=== PATIENT | female | born 1975 | race Caucasian/White ===

== ENCOUNTER → 2016-10-01 | Outpatient (CLI) | payer BC ==
--- NOTE | 2016-10-02 12:09 | MM ---
Reason for exam: screening (asymptomatic). Last mammogram was performed 1 year and 5 months ago. Physical Findings: A clinical breast exam by your physician is recommended on an annual basis and results should be correlated with mammographic findings. MG Screening Mammo w CAD Bilateral CC and MLO view(s) were taken. Prior study comparison: April 21, 2015, bilateral MG screening mammo w CAD. The breast tissue is heterogeneously dense. This may lower the sensitivity of mammography. Possible rounded edge abutting the retroglandular fat in the central left breast, CC view. Otherwise, no significant change. ASSESSMENT: Incomplete: need additional imaging evaluation, BI-RAD 0 RECOMMENDATION: Special view mammogram of the left breast. If lesion persists on supplemental views, image directed ultrasound is recommended. [facility] will attempt to contact patient to return for supplemental views and ultrasound if indicated.
== END | disposition home or self-care (01) ==
LOC: RADMAMWWP 13:28
PROVIDERS: ATTEND Family Medicine
DX: Z12.31 Encounter for screening mammogram for malignant neoplasm of breast (principal)

== ENCOUNTER → 2016-10-09 | Outpatient (CLI) | payer BC ==
--- NOTE | 2016-10-09 13:33 | MM ---
Reason for exam: additional evaluation requested from abnormal screening. Last mammogram was performed less than 1 month ago. Physical Findings: Nurse did not find any significant physical abnormalities on exam. MG Work Up Mamm w CAD LT ML, spot compression CC, and spot compression MLO view(s) were taken of the left breast. Prior study comparison: October 01, 2016, bilateral MG screening mammo w CAD. April 21, 2015, bilateral MG screening mammo w CAD. The breast tissue is heterogeneously dense. This may lower the sensitivity of mammography. There is no discrete abnormality. These results were verbally communicated with the patient and result sheet given to the patient on 10/09/16. ASSESSMENT: Benign, BI-RAD 2 RECOMMENDATION: Return to routine screening mammogram schedule for both breasts.
== END | disposition home or self-care (01) ==
LOC: RADMAMWWP 08:58
PROVIDERS: ATTEND Family Medicine
DX: R92.8 Other abnormal and inconclusive findings on diagnostic imaging of breast (principal)

== ENCOUNTER → 2017-12-24 | Outpatient (CLI) | payer BC ==
[2017-12-24 10:35] VITALS: BP 112/72; PULSE 75; TEMP 97.8; BMI 22.1
--- NOTE | 2017-12-24 11:16 | P.HPOB ---
History of Present Illness H&P Date: 12/24/17 Chief Complaint: The patient is here for her routine gynecologic exam and mammogram. This is a 42-year-old with an LMP of 12/10/2017 who is status post tubal ligation. The patient is here to establish with this office. She is status post endometrial ablation in 2009. Her menses are still tube coater than prior to the ablation, but they have gotten heavier over time. Menses are regular every month lasting about 7 days with 2 days of heavier flow. On the heavy days, she has to change her protection up to every one to one and a half hours. She also has some sharp pelvic pains that can go down into the left leg on the heavy days. She is otherwise without complaints. It has been about 2 years since her last pelvic exam. Review of Systems The patient's weight has been stable over the last year. She denies respiratory , cardiac, or G.I. problems. 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 She did have an endometrial ablation for hypermenorrhea in 2009. She had one section followed by vaginal delivery. 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 - Past Family History Father Family Medical History: Hypertension Mother Family Medical History: Hypertension Additional Family Medical History / Comment(s): A grandmother had lung cancer and the grandfather had prostate cancer. Medications and Allergies Home Medications Medication Instructions Recorded Confirmed Type No Known Home Medications [No 12/24/17 12/24/17 History Known Home Medications] Allergies Allergy/AdvReac Type Severity Reaction Status Date / Time amoxicillin Allergy Severe Rash/Hives Unverified 12/24/17 10:26 cephalexin [From Keflex] Allergy Severe Nausea & Unverified 12/24/17 10:28 Vomiting erythromycin base Allergy Rash/Hives Unverified 12/24/17 10:28 codeine AdvReac Severe Nausea & Unverified 12/24/17 10:28 Vomiting Exam - Vital Signs Vital signs: Vital Signs Temp Pulse BP 12/24/17 10:28 97.8 F 75 112/72 Intake and Output 12/23/17 12/24/17 12/24/17 22:59 06:59 14:59 Other: Weight 58.513 kg Height 5'4", BMI 22.1. This is a well-developed well-nourished white female who is alert and oriented times 3 in no acute distress. HEENT: Within normal limits. NECK: Supple without mass or thyromegaly. CHEST AND LUNGS: Clear to auscultation. HEART: Regular rate and rhythm. BREASTS: Are without mass or discharge. AXILLARY EXAM: Negative for adenopathy. BACK: Negative for CVA tenderness. ABDOMEN: Soft, nontender, without palpable masses. PELVIC EXAM: Normal external genitalia. Cervix and vagina appear normal. There is no unusual discharge. There is no evidence of prolapse. The uterus is retroverted, multiparous nongravid size and nontender. There are no palpable adnexal masses or tenderness. RECTAL EXAM: negative for mass or tenderness and is negative for occult blood. EXTREMITIES: Nontender. IMPRESSION: 1. 42-year-old female with status post tubal ligation and endometrial ablation with normal gynecologic exam. 2. Mild hypermenorrhea several years after her endometrial ablation. PLAN: 1. Pap smear was performed. 2. Self breast awareness was discussed. 3. Screening mammogram will be done today. 4. Trial of meclofenamate sodium 100 mg PO TID PRN heavy menstrual flow up to 6 days per cycle. An electronic prescription will be sent to [facility]. 5. If she has worsening of her hypermenorrhea, she was instructed to call and we can consider other options such as hysterectomy. 6. Osteoporosis prevention was discussed. 7. She will return in one year and PRN.
--- NOTE | 2017-12-25 10:38 | MM ---
Reason for exam: screening (asymptomatic). Last mammogram was performed 1 year and 2 months ago. Physical Findings: A clinical breast exam by your physician is recommended on an annual basis and results should be correlated with mammographic findings. MG Screening Mammo w CAD Bilateral CC and MLO view(s) were taken. Prior study comparison: October 09, 2016, left breast MG work up mamm w CAD LT. October 01, 2016, bilateral MG screening mammo w CAD. The breast tissue is heterogeneously dense. This may lower the sensitivity of mammography. There is no discrete abnormality. ASSESSMENT: Negative, BI-RAD 1 RECOMMENDATION: Routine screening mammogram of both breasts in 1 year.
== END | disposition home or self-care (01) ==
LOC: WWCWWP 09:46
PROVIDERS: ATTEND Obstetrics & Gynecology
DX: Z12.31 Encounter for screening mammogram for malignant neoplasm of breast (principal)
CPT/HCPCS: 77067

== ENCOUNTER → 2018-08-07 | Outpatient (CLI) | payer BC ==
[2018-08-08 13:30] LABS: Cow's Milk IgE Class CLASS 0; Egg White IgE <0.35 kU/L (<0.35); Latex IgE Class CLASS 0; Peanut IgE <0.35 kU/L (<0.35); Potato IgE <0.35 kU/L (<0.35); Potato IgE Class CLASS 0; Soybean IgE <0.35 kU/L (<0.35)
[2018-08-10 14:27] LABS: Chocolate IgG 5.2 mcg/mL (< 2.0); Pork IgG 5.3 mcg/mL (< 2.0); Walnut IgG 2.9 mcg/mL (< 2.0)
[2018-08-10 14:28] LABS: Apple IgG 5.2 mcg/mL (< 2.0); Banana IgG 21.7 mcg/mL (< 2.0); Chicken Meat IgG 3.6 mcg/mL (< 2.0); Coffee IgG 6.2 mcg/mL (< 2.0); Crab IgG 2.4 mcg/mL (< 2.0); Egg Yolk IgG 10.3 mcg/mL (< 2.0); Orange IgG 3.3 mcg/mL (< 2.0)
[2018-08-10 14:29] LABS: Celery IgG 3.4 mcg/mL (< 2.0); Corn IgG 5.9 mcg/mL (< 2.0); Cow's Milk IgG 67.8 mcg/mL (< 2.0); Oat IgG 7.4 mcg/mL (< 2.0); Peanut IgG 2.9 mcg/mL (< 2.0); Potato IgG 2.9 mcg/mL (< 2.0); Rice IgG 7.5 mcg/mL (< 2.0); Soybean IgG 2.4 mcg/mL (< 2.0); Tomato IgG 4.2 mcg/mL (< 2.0); Wheat IgG 12.3 mcg/mL (< 2.0)
[2018-08-14 17:17] LABS: Tea IgG 5.2 mcg/mL
== END | disposition home or self-care (01) ==
LOC: LABWHC1 08:40
PROVIDERS: ATTEND Otolaryngology
DX: J30.89 Other allergic rhinitis (principal)
CPT/HCPCS: 36415; 86001; 86003

== ENCOUNTER 2018-12-04 22:29 | Observation (INO) | payer BC ==
[2018-12-04] MEDS ORDERED: KETOROLAC 30 MG/ML 1 ML VIAL IVP STA (22:37)
--- NOTE | 2018-12-04 22:56 | ED ---
Chest Pain HPI - General Stated Complaint: Chest pain Time Seen by Provider: 12/04/18 22:29 Source: patient, EMS, RN notes reviewed Mode of arrival: EMS - History of Present Illness Initial Comments: This a 43-year-old female with a history of reflux but no history of heart or lung disease was a nonsmoker who presents by EMS today with complaints of some sharp squeezing chest pain it radiates to her back she states the pain was 9/10 severity she also has some associated difficulty breathing with it. She states it also did radiate somewhat to the left jaw. EMS was summoned she was given aspirin as well as nitroglycerin the nitroglycerin brought the pain down to a 6 from a 9/10 also dropped her blood pressure however she was given a fluid bolus. She does feel somewhat better but still has this tight feeling she describes a. No cough phlegm production fevers chills sweats nausea no abdominal pain. She does have a family history of a grandparent with the heart attack in the age of 60's. She states nothing makes pain better or worse no movement or positional changes she denies any trauma or any exertional activity that may have precipitated the above. MD Complaint: chest pain, other - Related Data Home Medications Medication Instructions Recorded Confirmed Cbd Oil 1 drop SUBLINGUAL DAILY 12/04/18 12/04/18 Allergies Allergy/AdvReac Type Severity Reaction Status Date / Time amoxicillin Allergy Severe Rash/Hives Verified 12/04/18 22:44 erythromycin base Allergy Rash/Hives Verified 12/04/18 22:44 cephalexin [From Keflex] AdvReac Severe Nausea & Verified 12/04/18 22:44 Vomiting codeine AdvReac Severe Nausea & Verified 12/04/18 22:44 Vomiting Review of Systems ROS Statement: Those systems with pertinent positive or pertinent negative responses have been documented in the HPI. ROS Other: All systems not noted in ROS Statement are negative. 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 She did have an endometrial ablation for hypermenorrhea in 2009. She had one section followed by vaginal delivery. History of Any Multi-Drug Resistant Organisms: None Reported Past Surgical History: Ablation (Endometrial), Section, Tonsillectomy Past Psychological History: No Psychological Hx Reported Smoking Status: Never smoker Past Alcohol Use History: Occasional (6 per week) Past Drug Use History: None Reported - Past Family History Father Family Medical History: Hypertension Mother Family Medical History: Hypertension Additional Family Medical History / Comment(s): A grandmother had lung cancer and the grandfather had prostate cancer. General Exam - General Exam Comments Initial Comments: This is a well-developed well-nourished awake alert oriented 3 female General appearance: alert, anxious Head exam: Present: atraumatic, normocephalic, normal inspection Eye exam: Present: normal appearance, PERRL, EOMI. Absent: scleral icterus, conjunctival injection, periorbital swelling ENT exam: Present: normal exam, mucous membranes moist Neck exam: Present: normal inspection, full ROM, other (No stridor JVD or bruits). Absent: tenderness, meningismus, lymphadenopathy Respiratory exam: Present: normal lung sounds bilaterally. Absent: respiratory distress, wheezes, rales, rhonchi, stridor, chest wall tenderness Cardiovascular Exam: Present: regular rate, normal rhythm, normal heart sounds. Absent: systolic murmur, diastolic murmur, rubs, gallop, clicks GI/Abdominal exam: Present: soft, normal bowel sounds. Absent: distended, tenderness, guarding, rebound, rigid, bruit, pulsatile mass, hernia Extremities exam: Present: normal inspection, full ROM, normal capillary refill. Absent: tenderness, pedal edema, joint swelling, calf tenderness Back exam: Present: normal inspection Neurological exam: Present: alert, oriented X3, CN II-XII intact Psychiatric exam: Present: normal affect, normal mood Skin exam: Present: warm, dry, intact, normal color. Absent: rash Course Vital Signs 12/04/18 22:50 Pulse Rate 81 Respiratory 18 Rate Blood Pressure 131/82 O2 Sat by Pulse 98 Oximetry - Reevaluation(s) Reevaluation #1: 12/05/18 00:17 Reevaluation patient reveals she did get some improvement from the medication was rendered. Chest Pain MDM - MDM I did review the imaging and report no acute findings. Patient is feeling improved the presentation is consistent with new onset angina though other possibilities exist. Lab work thus far is negative the EKG was within normal limits the patient did present with complaints of chest pain and tightness that radiated to her jaw into her back. He admitted case discussed with Dr. Magallanes. Cardiology will be consulted. I did discuss this with patient and her family members were present there in agreement with this route of action. Disposition Clinical Impression: Unstable angina pectoris, Chest pain Disposition: ADMITTED IP TO THIS HOSP Condition: Stable Referrals: Lucila Ridley DO [Primary Care Provider] - 1-2 days
[2018-12-04 23:19] LABS: Basophils % (A) 0 %; Eosinophils # (A) 0.1 k/uL (0-0.7); Eosinophils % (A) 1 %; HCT 39.7 % (34.0-46.0); HGB 13.4 gm/dL (11.4-16.0); Lymphocytes # (A) 1.8 k/uL (1.0-4.8); Lymphocytes % (A) 18 %; MCH 30.1 pg (25.0-35.0); MCHC 33.8 g/dL (31.0-37.0); MCV 89.3 fL (80.0-100.0); Monocytes # (A) 0.6 k/uL (0-1.0); Monocytes % (A) 6 %; Neutrophils # (A) 7.4 k/uL (1.3-7.7); Neutrophils % (A) 73 %; Platelet Count 318 k/uL (150-450); RBC 4.45 m/uL (3.80-5.40); RDW 12.9 % (11.5-15.5); WBC 10.1 k/uL (3.8-10.6)
[2018-12-04 23:27] LABS: ALT 21 U/L (9-52); AST 18 U/L (14-36); Albumin 3.8 g/dL (3.5-5.0); Alkaline Phosphatase 62 U/L (38-126); Amylase 69 U/L (30-110); Anion Gap 9 mmol/L; Blood Urea Nitrogen 10 mg/dL (7-17); Carbon Dioxide 18 mmol/L (22-30); Chloride 111 mmol/L (98-107); Creatine Kinase 42 U/L (30-135); Glucose 105 mg/dL (74-99); Lipase 106 U/L (23-300); Magnesium 1.8 mg/dL (1.6-2.3); Potassium 3.8 mmol/L (3.5-5.1); Sodium 138 mmol/L (137-145); Total Bilirubin 0.5 mg/dL (0.2-1.3); Total Protein 6.7 g/dL (6.3-8.2)
[2018-12-04 23:33] LABS: D-Dimer 0.28 mg/L FEU (<0.60); Partial Thromboplastin Time 24.5 sec (22.0-30.0); Prothrombin Time 10.5 sec (9.0-12.0)
--- NOTE | 2018-12-05 00:02 | XR ---
EXAM: XR Chest, 2 Views CLINICAL HISTORY: ITS.REASON XR Reason: Chest Pain TECHNIQUE: Frontal and lateral views of the chest. COMPARISON: No relevant prior studies available. FINDINGS: Lungs: Unremarkable. No consolidation. Pleural space: Unremarkable. No pneumothorax. Heart: No suspicious enlargement. Mediastinum: Unremarkable. Bones/joints: No acute fracture. IMPRESSION: No acute findings.
[2018-12-05] MEDS ORDERED: HEPARIN SODIUM,PORCINE 5,000 UNIT/ML 1 ML VIAL IV ONE (00:22)
[2018-12-05] MEDS ORDERED: NITROGLYCERIN SL TABS 0.4 MG TAB SUBLINGUAL PRN (00:22)
[2018-12-05] MEDS ORDERED: HEPARIN SOD,PORK IN 0.45% NACL 25,000 UNIT in 0.45% NACL 1 250ML.BAG IV SCH (00:30)
[2018-12-05 01:16] VITALS: RESP 16
[2018-12-05] MEDS ORDERED: HEPARIN SODIUM,PORCINE 5,000 UNIT/ML 1 ML VIAL IV PRN (01:28)
[2018-12-05] MEDS: SODIUM CHLORIDE 0.9% 1,000 ML IV STA ×2 (03:16→03:39)
[2018-12-05] MEDS ORDERED: NITROGLYCERIN OINT 1 INCH/GM PACKET TOPICAL SCH (06:00)
--- NOTE | 2018-12-05 10:06 | P.HPIM ---
History of Present Illness Chief Complaint: Chest pain This very pleasant 43-year-old female with a past medical history significant for GERD comes in with above-mentioned complaints. Patient says that he had just come back from outside when she suddenly started having pain in her left side of the chest radiating to her back and the jaw. It was squeezing in character about 9 x 10 intensity. She was also having some nausea but no vomiting she did not complain of any cough but she said that she was really short of breath. She otherwise did not complain of any abdominal pain, any loss of vision or blurry vision, no Lightheadedness or dizziness, no diarrhea constipation, no tickling numbness of his extremities, no itch or rash. ER course-temperature 97.7 F pulse 64 respirations 16 blood pressure 91/59 satting 96% on room air. EKG was done which showed normal sinus rhythm, chest x-ray shows no acute changes. Labwork was done which showed WAC 10.1 hemoglobin 13.4 platelets 318 d-dimer 0.28 sodium 1:30 potassium 3.8 bun 10 creatinine 0.59 GFR more than 90 LFTs are normal troponin were negative. Patient was admitted to the hospitalist service for further admission and management with cardiology consult Review of Systems All systems: negative Past Medical History Past Medical History: Rheumatoid Arthritis (RA) Additional Past Medical History / Comment(s): she did have an endometrial ablation for hypermenorrhea in 2009. She had one section followed by vaginal delivery. History of Any Multi-Drug Resistant Organisms: None Reported Past Surgical History: Ablation, Section, Tonsillectomy Past Psychological History: No Psychological Hx Reported Smoking Status: Never smoker Past Alcohol Use History: Occasional Past Drug Use History: None Reported - Past Family History Father Family Medical History: Hypertension Mother Family Medical History: Hypertension Additional Family Medical History / Comment(s): A grandmother had lung cancer and the grandfather had prostate cancer. Medications and Allergies Home Medications Medication Instructions Recorded Confirmed Type Cbd Oil 1 drop SUBLINGUAL DAILY 12/04/18 12/05/18 History Allergies Allergy/AdvReac Type Severity Reaction Status Date / Time amoxicillin Allergy Severe Rash/Hives Verified 12/05/18 01:43 erythromycin base Allergy Rash/Hives Verified 12/05/18 01:43 cephalexin [From Keflex] AdvReac Severe Nausea & Verified 12/05/18 01:43 Vomiting codeine AdvReac Severe Nausea & Verified 12/05/18 01:43 Vomiting Physical Exam Vitals: Vital Signs Temp Pulse Pulse Pulse Resp BP BP 12/05/18 07:05 97.7 F 64 16 12/05/18 03:53 98.3 F 74 16 99/63 12/05/18 02:09 16 12/05/18 01:30 98.5 F 62 16 107/66 12/05/18 01:15 71 16 116/70 12/04/18 22:50 81 18 131/82 BP Pulse Ox 12/05/18 07:05 91/59 97 12/05/18 03:53 98 12/05/18 02:09 12/05/18 01:30 96 12/05/18 01:15 96 12/04/18 22:50 98 Intake and Output 12/04/18 12/05/18 12/05/18 22:59 06:59 14:59 Intake Total 438.551 Balance 438.551 Intake: IV 400 Sodium Chloride 0.9% 1, 400 000 ml @ 100 mls/hr IV . Q10H [facility] Rx#:[id number] Intake, IV Titration 38.551 Amount Heparin Sod,Pork in 0.45% 38.551 NaCl 25,000 unit In 0.45 % NaCl 1 250ml.bag @ 12 UNITS/KG/HR 6.967 mls/hr IV .Q24H [facility] Rx#: [id number] Other: Voiding Method Toilet Toilet # Voids 2 Weight 58.06 kg On exam, alert and oriented x3. HEENT: Conjunctivae normal. eyes normal. NECK: No JVD. No thyroid enlargement. No LNs CARDIOVASCULAR: S1, S2 heard RESPIRATION: Breath sounds diminished in the bases. No rhonchi or crackles. No bronchial breathing. ABDOMEN: Soft, nontender . No guarding. no masses palpable. No ascites, No hepatosplenomegaly.Bowel sounds heard. LEGS: No edema. no swelling NERVOUS SYSTEM: Cranial N 2-12 grossly normal. Moves all 4 limbs. No focal deficits. No sensory deficit. No signs of cerebellar dysfucntion. Skin: no ulcer no rash Joints: No active swelling. No inflammation. Lymphatic system. No LN neck axilla or groin. Results CBC & Chem 7: 12/04/18 23:00 12/04/18 23:00 Labs: Abnormal Lab Results - Last 24 Hours (Table) 12/04/18 12/05/18 Range/Units 23:00 06:00 APTT 42.4 H (22.0-30.0) sec Chloride 111 H (98-107) mmol/L Carbon Dioxide 18 L (22-30) mmol/L Glucose 105 H (74-99) mg/dL Thrombosis Risk Factor Assmnt - Choose All That Apply Any of the Below Risk Factors Present?: Yes Each Factor Represents 1 point: Age 41-60 years Other Risk Factors: No Other congenital or acquired thrombophilia - If yes, enter type in comment: No Thrombosis Risk Factor Assessment Total Risk Factor Score: 1 Thrombosis Risk Factor Assessment Level: Low Risk Assessment and Plan Assessment: - Chest pain need to rule out the cause - GERD Plan - Patient is admitted to observation - Cardiology consulted. Order for stress test - Patient's d-dimer was negative so this no probably D of PE. Patient chest pain is gone and she is breathing better. - He was stress test is negative patient can probably be discharged - We'll continue DVT and prophylaxis till that time - Patient is full code
--- NOTE | 2018-12-05 10:55 | P.CRDCN ---
History of Present Illness History of present illness: This is a pleasant 43-year-old female with no significant past medical history who presents to the hospital with an episode of chest discomfort. She states off-and-on for the previous few days she has noticed a burning sensation in the midsternal region that she thought was acid reflux. She has been taking Tums and it was helping mildly. However yesterday afternoon while she was getting ready to have dinner she felt a tight sensation in the left precordial region systolic someone was sitting on her chest and it radiated to the left shoulder, left upper back and into her jaw. She also felt acutely short of breath. This lasted for approximately 20-30 minutes and she called EMS. She took an aspirin at home and her symptoms did mildly start to subside. By the time she arrived to the emergency department her symptoms had completely resolved. She has had no further chest discomfort since arriving at the hospital. She denies associated palpitations, nausea, vomiting or diaphoresis. EKG reveals sinus mechanism with no acute ST or T wave abnormalities noted. Chest x-ray is negative for acute cardiopulmonary process. Laboratory data reviewed, WBC 10.1, hemoglobin 13.4, platelets 318, d-dimer 0.28, sodium 138, potassium 3.8, creatinine 0.59, magnesium 1.8, cardiac enzymes negative 2. She takes no daily cardiac medications. At the time of my exam: CONSTITUTIONAL: Denies fever. Denies chills. EYES: Denies blurred vision. Denies vision changes. Denies eye pain. EARS, NOSE, MOUTH & THROAT: Denies headache. Denies sore throat. Denies ear pain. CARDIOVASCULAR: Denies chest pain. Denies shortness of breath. Denies orthopnea. Denies PND. Denies palpitations. RESPIRATORY: Denies cough. GASTROINTESTINAL: Denies abdominal pain. Denies diarrhea. Denies constipation. Denies nausea. Denies vomiting. MUSCULOSKELETAL: Denies myalgias. INTEGUMENTARY: Denies pruitis. Denies rash. NEUROLOGIC: Denies numbness. Denies tingling. Denies weakness. PSYCHIATRIC: Denies anxiety. Denies depression. ENDOCRINE: Denies fatigue. Denies weight change. Denies polydipsia. Denies polyurina. GENITOURINARY: Denies burning, hematuria or urgency with micturation. HEMATOLOGIC: Denies history of anemia. Denies bleeding. Blood pressure 91/59 heart rate 64 afebrile maintaining oxygen saturation on room air GENERAL: This is a 43-year-old female in no apparent distress at the time of my examination. HEENT: Head is atraumatic, normocephalic. Pupils are equal, round. Sclerae anicteric. Conjunctivae are clear. Mucous membranes of the mouth are moist. Neck is supple. There is no jugular venous distention. No carotid bruit is heard. LUNGS: Clear to auscultation no wheezes, rales or rhonchi. No chest wall tenderness is noted on palpation or with deep breathing. HEART: Regular rate and rhythm without murmurs, rubs or gallops. S1 and S2 heard. ABDOMEN: Soft, nontender. Bowel sounds are heard. No organomegaly noted. EXTREMITIES: No evidence of peripheral edema and no calf tenderness noted. VASCULAR: Radial and dorsalis pedis pulses palpated, no evidence of clubbing. NEUROLOGIC: Patient is awake, alert and oriented x3. ASSESSMENT Chest pain, atypical for angina. An acute coronary event has been ruled out PLAN An acute coronary event has been ruled out. Discontinue heparin infusion. Obtain 2-D echocardiogram and Doppler study to assess cardiac structure and function. Perform stress echocardiogram to assess for stress-induced cardiac ischemia. If stress test and echocardiogram are normal she may be discharged home. Follow-up with her primary care physician upon discharge. Thank you kindly for this consultation. Nurse Practitioner note has been reviewed, I agree with a documented findings and plan of care. Patient was seen and examined. Past Medical History Past Medical History: Rheumatoid Arthritis (RA) Additional Past Medical History / Comment(s): she did have an endometrial a blation for hypermenorrhea in 2009. She had one section followed by vaginal delivery. History of Any Multi-Drug Resistant Organisms: None Reported Past Surgical History: Ablation, Section, Tonsillectomy Past Psychological History: No Psychological Hx Reported Smoking Status: Never smoker Past Alcohol Use History: Occasional Past Drug Use History: None Reported - Past Family History Father Family Medical History: Hypertension Mother Family Medical History: Hypertension Additional Family Medical History / Comment(s): A grandmother had lung cancer and the grandfather had prostate cancer. Medications and Allergies Home Medications Medication Instructions Recorded Confirmed Type Cbd Oil 1 drop SUBLINGUAL DAILY 12/04/18 12/05/18 History Allergies Allergy/AdvReac Type Severity Reaction Status Date / Time amoxicillin Allergy Severe Rash/Hives Verified 12/05/18 01:43 erythromycin base Allergy Rash/Hives Verified 12/05/18 01:43 cephalexin [From Keflex] AdvReac Severe Nausea & Verified 12/05/18 01:43 Vomiting codeine AdvReac Severe Nausea & Verified 12/05/18 01:43 Vomiting Physical Exam Vitals: Vital Signs Temp Pulse Pulse Pulse Resp BP BP 12/05/18 07:05 97.7 F 64 16 12/05/18 03:53 98.3 F 74 16 99/63 12/05/18 02:09 16 12/05/18 01:30 98.5 F 62 16 107/66 12/05/18 01:15 71 16 116/70 12/04/18 22:50 81 18 131/82 BP Pulse Ox 12/05/18 07:05 91/59 97 12/05/18 03:53 98 12/05/18 02:09 12/05/18 01:30 96 12/05/18 01:15 96 12/04/18 22:50 98 Intake and Output 12/04/18 12/05/18 12/05/18 22:59 06:59 14:59 Intake Total 438.551 Balance 438.551 Intake: IV 400 Sodium Chloride 0.9% 1, 400 000 ml @ 100 mls/hr IV . Q10H [facility] Rx#:[id number] Intake, IV Titration 38.551 Amount Heparin Sod,Pork in 0.45% 38.551 NaCl 25,000 unit In 0.45 % NaCl 1 250ml.bag @ 12 UNITS/KG/HR 6.967 mls/hr IV .Q24H [facility] Rx#: [id number] Other: Voiding Method Toilet # Voids 2 Weight 58.06 kg Results 12/04/18 23:00 12/04/18 23:00 Cardiac Enzymes 12/04/18 12/04/18 12/05/18 Range/Units 23:00 23:00 06:00 AST 18 (14-36) U/L Troponin I <0.012 <0.012 (0.000-0.034) ng/mL Coagulation 12/04/18 12/05/18 Range/Units 23:00 06:00 PT 10.5 (9.0-12.0) sec APTT 24.5 42.4 H (22.0-30.0) sec CBC 12/04/18 Range/Units 23:00 WBC 10.1 (3.8-10.6) k/uL RBC 4.45 (3.80-5.40) m/uL Hgb 13.4 (11.4-16.0) gm/dL Hct 39.7 (34.0-46.0) % Plt Count 318 (150-450) k/uL Comprehensive Metabolic Panel 12/04/18 Range/Units 23:00 Sodium 138 (137-145) mmol/L Potassium 3.8 (3.5-5.1) mmol/L Chloride 111 H (98-107) mmol/L Carbon Dioxide 18 L (22-30) mmol/L BUN 10 (7-17) mg/dL Creatinine 0.59 (0.52-1.04) mg/dL Glucose 105 H (74-99) mg/dL Calcium 9.0 (8.4-10.2) mg/dL AST 18 (14-36) U/L ALT 21 (9-52) U/L Alkaline Phosphatase 62 (38-126) U/L Total Protein 6.7 (6.3-8.2) g/dL Albumin 3.8 (3.5-5.0) g/dL Current Medications Generic Name Dose Route Start Last Admin Trade Name Freq PRN Reason Stop Dose Admin Aspirin 325 mg 12/06/18 09:00 Aspirin PO DAILY [facility] Heparin Sodium (Porcine) 0 unit 12/05/18 01:28 12/05/18 06:39 Heparin IV 1,450 unit PER PROTOCOL PRN Administration Low PTT Protocol Sodium Chloride 1,000 mls @ 100 mls/hr 12/04/18 22:37 12/05/18 03:39 Saline 0.9% IV 12/05/18 08:36 100 mls/hr .Q10H [facility] Administration Heparin Sodium/Sodium Chloride 250 mls @ 6.967 mls/hr 12/05/18 00:30 12/05/18 06:39 25,000 unit/ Sodium Chloride IV 14 units/kg/hr .Q24H [facility] 8.128 mls/hr Titration Protocol 12 UNITS/KG/HR Nitroglycerin 0.5 inch 12/05/18 06:00 12/05/18 03:55 Nitro-Bid Oint TOPICAL Not Given Q6HR [facility] Nitroglycerin 0.4 mg 12/05/18 00:22 Nitrostat SUBLINGUAL Q5M PRN Chest Pain Intake and Output 12/04/18 12/05/18 12/05/18 22:59 06:59 14:59 Intake Total 438.551 Balance 438.551 Intake: IV 400 Sodium Chloride 0.9% 1, 400 000 ml @ 100 mls/hr IV . Q10H [facility] Rx#:[id number] Intake, IV Titration 38.551 Amount Heparin Sod,Pork in 0.45% 38.551 NaCl 25,000 unit In 0.45 % NaCl 1 250ml.bag @ 12 UNITS/KG/HR 6.967 mls/hr IV .Q24H [facility] Rx#: [id number] Other: Voiding Method Toilet # Voids 2 Weight 58.06 kg 12/04/18 23:00 12/04/18 23:00
[2018-12-05 11:54] VITALS: BP 101/65; PULSE 82; TEMP 97.9
--- NOTE | 2018-12-05 12:01 | P.STRESS ---
- Stress Test Note Stress Test Results/Findings: Exam Performed: stress echo exercise Exam Date: 12/05/18 Reason for Exam: CHEST PAIN / SOB Height: 5 ft 4 in Weight: 58.06 kg Protocol: AGUSTIN Stage: 4 Duration of Exercise: 9:30 Resting Heart Rate: 72 Resting Blood Pressure: 96/58 Maximum Achieved Heart Rate: 160 Maximum Achieved Blood Pressure: 187/85 85% PMHR: 149 100% PMHR: 175 METS: 11.1 Technologist Comment: Stress Test Results/Findings: This is a 43-year-old female who was admitted to the hospital with chest pain and shortness of breath. Stress data: Baseline EKG showed sinus rhythm with normal TN interval and QRS duration. Blood pressure at rest is 96/58, pulse rate of 72. Patient walked on the Agustin protocol for 9 minutes and 30 seconds achieving a maximum heart rate of 160 with a blood pressure 187/85. EKGs taken during and after the exercise did not reveal any changes of ischemia. Echo data: Baseline echo images showed normal wall motion and thickening. Exercise echo images showed augmentation of wall motion and thickening in all the segments. Final impression: #1. Negative stress test #2. Negative stress echo
--- NOTE | 2018-12-05 12:41 | ECHOF ---
Referral Reason:cp MEASUREMENTS -------- HEIGHT: 162.6 cm WEIGHT: 58.1 kg BP: RVIDd: 2.0 cm (< 3.3) IVSd: 0.9 cm (0.6 - 1.1) LVIDd: 4.2 cm (3.9 - 5.3) LVPWd: 1.0 cm (0.6 - 1.1) IVSs: 1.3 cm LVIDs: 2.8 cm LVPWs: 1.4 cm LAESV Index (A-L): 19.73 ml/m Ao Diam: 2.6 cm (2.0 - 3.7) AV Cusp: 1.4 cm (1.5 - 2.6) LA Diam: 2.5 cm (2.7 - 3.8) MV EXCURSION: 14.273 mm (> 18.000) MV EF SLOPE: 143 mm/s (70 - 150) EPSS: 0.4 cm MV E Nabil: 0.82 m/s MV DecT: 242 ms MV A Nabil: 0.70 m/s MV E/A Ratio: 1.17 RAP: 5.00 mmHg RVSP: 12.32 mmHg FINDINGS -------- Sinus rhythm. This was a technically good study. The left ventricular size is normal. Left ventricular wall thickness is normal. Overall left vent ricular systolic function is normal with, an EF between 55 - 60 %. The right ventricle is normal in size. Normal LA size by volume 22+/-6 ml/m2. The right atrial size is normal. Interatrial and interventricular septum intact. The aortic valve is trileaflet and appears structurally normal. Mild mitral regurgitation is present , predominately a posteriorly directed jet. Trace tricuspid regurgitation present. The right ventricular systolic pressure, as measured by Dopp ler, is 12.32mmHg. There is no pulmonic regurgitation present. The aortic root size is normal. Normal inferior vena cava with normal inspiratory collapse consistent with estimated right atrial pre ssure of 5 mmHg. There is no pericardial effusion. CONCLUSIONS -------- 1. Sinus rhythm. 2. This was a technically good study. 3. The left ventricular size is normal. 4. Left ventricular wall thickness is normal. 5. Overall left ventricular systolic function is normal with, an EF between 55 - 60 %. 6. The right ventricle is normal in size. 7. Normal LA size by volume 22+/-6 ml/m2. 8. The right atrial size is normal. 9. Interatrial and interventricular septum intact. 10. The aortic valve is trileaflet and appears structurally normal. 11. Mild mitral regurgitation is present. 12. , predominately a posteriorly directed jet. 13. Trace tricuspid regurgitation present. 14. The right ventricular systolic pressure, as measured by Doppler, is 12.32mmHg. 15. There is no pulmonic regurgitation present. 16. The aortic root size is normal. 17. Normal inferior vena cava with normal inspiratory collapse consistent with estimated right atrial pressure of 5 mmHg. 18. There is no pericardial effusion. HANDLE MAKER: Funmi Xie RDCS
[2018-12-06] MEDS ORDERED: ASPIRIN 325 MG TAB PO SCH (09:00)
--- NOTE | 2018-12-08 14:49 | ECHOS ---
Stress Test Results/Findings: Exam Performed: stress echo exercise Exam Date: 12/05/18 Reason for Exam: CHEST PAIN / SOB Height: 5 ft 4 in Weight: 58.06 kg Protocol: AGUSTIN Stage: 4 Duration of Exercise: 9:30 Resting Heart Rate: 72 Resting Blood Pressure: 96/58 Maximum Achieved Heart Rate: 160 Maximum Achieved Blood Pressure: 187/85 85% PMHR: 149 100% PMHR: 175 METS: 11.1 Technologist Comment: Stress Test Results/Findings: This is a 43-year-old female who was admitted to the hospital with chest pain and shortness of breath. Stress data: Baseline EKG showed sinus rhythm with normal KS interval and QRS duration. Blood pressure at rest is 96/58, pulse rate of 72. Patient walked on the Agustin protocol for 9 minutes and 30 seconds achieving a maximum heart rate of 160 with a blood pressure 187/85. EKGs taken during and after the exercise did not reveal any changes of ischemia. Echo data: Baseline echo images showed normal wall motion and thickening. Exercise echo images showed augmentation of wall motion and thickening in all the segments. Final impression: #1. Negative stress test #2. Negative stress echo MTDD
== END 2018-12-05 16:40 | disposition home or self-care (01) ==
LOC: EC 22:29 → 1SOBS 12-05 00:34
PROVIDERS: ADMIT Internal Medicine; ATTEND Internal Medicine
DX: R07.89 Other chest pain (principal); K21.9 Gastro-esophageal reflux disease without esophagitis; M06.9 Rheumatoid arthritis, unspecified; Z79.899 Other long term (current) drug therapy; Z88.0 Allergy status to penicillin; Z88.1 Allergy status to other antibiotic agents; Z88.5 Allergy status to narcotic agent; Z87.42 Personal history of other diseases of the female genital tract; Z80.1 Family history of malignant neoplasm of trachea, bronchus and lung; Z80.42 Family history of malignant neoplasm of prostate; Z82.49 Family history of ischemic heart disease and other diseases of the circulatory system
CPT/HCPCS: 96366; 96376 ×2; 96365; 96375; 99285; 36415; 93306; 93351; 85379; 83880; 80053; 82150; 82550; 83690; 83735; 84484 ×2; 85025; 85610; 85730 ×2; 71046; G0378; J1644 ×2; J1885

== ENCOUNTER → 2019-01-20 | Outpatient (CLI) | payer BC ==
[2019-01-20 08:06] VITALS: BP 125/83; PULSE 69; RESP 16; TEMP 98.1; BMI 23.0
--- NOTE | 2019-01-20 08:41 | P.HPOB ---
History of Present Illness H&P Date: 01/20/19 Chief Complaint: The patient is here for her routine gynecologic exam and ma mmogram. This is a 43-year-old with an LMP of 01/05/2019. The patient was status post tubal ligation. She does not think she took the meclofenamate sodium for her heavier menstrual flow days. She states her menstrual periods have been okay. They are typically lasting about 7 days with 2 days of heavier flow. They are still better than before the her endometrial ablation. She states they are less painful now. She is not interested in any type of treatment at this time. She is without complaints. Review of Systems The patient has gained 5 pounds over the last year. She denies respiratory, cardiac, or G.I. problems. 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 She did have an endometrial ablation for hypermenorrhea in 2009. She had one section followed by vaginal delivery. History of Any Multi-Drug Resistant Organisms: None Reported Past Surgical History: Section, Tonsillectomy, Uterine Ablation Additional Past Surgical History / Comment(s): Endometrial ablation 2009. 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 - Past Family History Father Family Medical History: Hypertension Mother Family Medical History: Hypertension Additional Family Medical History / Comment(s): A grandmother had lung cancer and the grandfather had prostate cancer. Medications and Allergies Home Medications Medication Instructions Recorded Confirmed Type No Known Home Medications 01/20/19 01/20/19 History Allergies Allergy/AdvReac Type Severity Reaction Status Date / Time amoxicillin Allergy Severe Rash/Hives Verified 01/20/19 08:06 erythromycin base Allergy Rash/Hives Verified 01/20/19 08:06 cephalexin [From Keflex] AdvReac Severe Nausea & Verified 01/20/19 08:06 Vomiting codeine AdvReac Severe Nausea & Verified 01/20/19 08:06 Vomiting Exam Vital Signs Temp Pulse Resp BP Pulse Ox 01/20/19 08:04 98.1 F 69 16 125/83 97 Intake and Output 01/19/19 01/20/19 01/20/19 22:59 06:59 14:59 Other: Weight 60.781 kg Height 5'4", weight 134 pounds, BMI 23.0. This is a well-developed well-nourished white female who is alert and oriented times 3 in no acute distress. HEENT: Within normal limits. NECK: Supple without mass or thyromegaly. CHEST AND LUNGS: Clear to auscultation. HEART: Regular rate and rhythm. BREASTS: Are without mass or discharge. There is bilateral central nipple inversion which the patient states has been this way for many years. AXILLARY EXAM: Negative for adenopathy. BACK: Negative for CVA tenderness. ABDOMEN: Soft, nontender, without palpable masses. PELVIC EXAM: Normal external genitalia. Cervix and vagina appear normal. There is no unusual discharge. There is no evidence of prolapse. The uterus is retroverted, nongravid size and nontender. There are no palpable adnexal masses or tenderness. RECTAL EXAM: negative for mass or tenderness and is negative for occult blood. EXTREMITIES: Nontender. IMPRESSION: 1. 43-year-old female with normal gynecologic exam who is status post tubal ligation. 2. Mild hypermenorrhea post endometrial ablation which is not a big problem. Declining any treatment at this time. PLAN: 1. Pap smear was deferred since she had a normal one on 12/14/2017. 2. Self breast awareness was discussed with the patient. 3. Screening mammogram will be done today. 4. Osteoporosis prevention was discussed. I have stressed the importance of adequate calcium, vitamin D and regular exercise. Recommended amounts of calcium and vitamin D were also discussed. 5. She will keep a menstrual calendar and call if she is having any menstrual problems. 6. We have discussed possible HPV vaccination for her 2 daughters. 7. She was advised to return in one year for her annual well woman exam.
--- NOTE | 2019-01-21 10:45 | MM ---
Reason for exam: screening (asymptomatic). Last mammogram was performed 1 year and 1 month ago. Physical Findings: A clinical breast exam by your physician is recommended on an annual basis and results should be correlated with mammographic findings. MG 3D Screening Mammo W/Cad Bilateral CC and MLO view(s) were taken. Prior study comparison: December 24, 2017, bilateral MG screening mammo w CAD. October 09, 2016, left breast MG work up mamm w CAD LT. The breast tissue is extremely dense which could obscure a lesion on mammography. There are multiple round oval circumscribed bilateral masses, however enlarged from priors. Ultrasound to confirm cystic nature. These are seen in all 4 quadrants bilaterally and measure up to 3.1cm on the left and 2.0cm on the right. ASSESSMENT: Incomplete: need additional imaging evaluation, BI-RAD 0 RECOMMENDATION: Ultrasound of both breasts. [facility] will attempt to contact patient to return for ultrasound.
== END ==
LOC: WWCWWP 07:54
PROVIDERS: ATTEND Obstetrics & Gynecology
DX: Z12.31 Encounter for screening mammogram for malignant neoplasm of breast (principal)
CPT/HCPCS: 77063; 77067

== ENCOUNTER → 2019-01-23 | Outpatient (CLI) | payer BC ==
--- NOTE | 2019-01-26 08:45 | USB ---
Reason for exam: additional evaluation requested from abnormal screening. Physical Findings: Nurse Summary: all soft, movable (nurse ts). US Breast Workup MITZY Right complete breast ultrasound includes all four quadrants, the retroareolar region and axilla. Finding demonstrates a 10 x 7 x 11mm oval, cystic, benign lesion at 1 o'clock, a 6 x 4 x 4mm oval, hypoechoic lesion at 6 o'clock post enhancement, likely complicated cyst, 6 month follow up recommended, a 10 x 6 x 9mm oval, cystic, benign lesion at 7 o'clock, a 20 x 9 x 19mm oval, cystic, benign lesion at 10 o'clock, a 12 x 11 x 13mm lobular, cystic, benign lesion at 11 o'clock and a 10mm lymph node at the axillary tail. Left complete breast ultrasound includes all four quadrants, the retroareolar region and axilla. Finding demonstrates a 12 x 9 x 12mm oval, cystic lesion at 12 o'clock, a 11 x 7 x 10mm oval, cystic lesion at 6 o'clock, a 33 x 16 x 26mm oval, cystic lesion at 9 o'clock, a 6 x 4 x 6mm hypoechoic lesion at 10 o'clock and a 27 x 15 x 24mm lobular, cystic lesion at 10 o'clock. These results were verbally communicated with the patient and result sheet given to the patient on 01/23/19. ASSESSMENT: Probably benign, BI-RAD 3 RECOMMENDATION: Ultrasound of the left breast in 6 months. (only upper inner quadrant on left breast 6 month follow up)
== END | disposition home or self-care (01) ==
LOC: RADUSWWP 13:37
PROVIDERS: ATTEND Obstetrics & Gynecology
DX: R92.8 Other abnormal and inconclusive findings on diagnostic imaging of breast (principal)

== ENCOUNTER → 2019-07-30 | Outpatient (CLI) | payer BC ==
--- NOTE | 2019-07-30 11:08 | USB ---
Reason for exam: follow-up at short interval from prior study. Physical Findings: Nurse did not find any significant physical abnormalities on exam. US Breast Limited LT Technologist: Bettina Melgoza Left limited breast ultrasound including focal area of concern, retroareolar and axilla demonstrates a 3.3 x 3.1 x 1.4cm cystic lesion at 10 o'clock, a 3.0 x 2.7 x 1.5cm cystic lesion at 11 o'clock, a 0.5 x 0.5 x 0.4cm complicated, cystic lesion at 11 o'clock with few internal echoes prior 0.6 x 0.4 x 0.6cm on 01/23/19 and ducts at posterior nipple. These results were verbally communicated with the patient and result sheet given to the patient on 07/30/19. ASSESSMENT: Benign, BI-RAD 2 RECOMMENDATION: Return to routine screening mammogram schedule for both breasts. Back on schedule for January 2020.
== END | disposition home or self-care (01) ==
LOC: RADUSWWP 08:48
PROVIDERS: ATTEND Obstetrics & Gynecology
DX: R92.8 Other abnormal and inconclusive findings on diagnostic imaging of breast (principal)

== ENCOUNTER → 2020-06-06 | Outpatient (CLI) | payer BC ==
[2020-06-06 17:11] LABS: Basophils # (A) 0.1 k/uL (0-0.2); Basophils % (A) 1 %; Eosinophils # (A) 0.2 k/uL (0-0.7); Eosinophils % (A) 2 %; HCT 43.8 % (34.0-46.0); HGB 14.5 gm/dL (11.4-16.0); Lymphocytes # (A) 2.1 k/uL (1.0-4.8); Lymphocytes % (A) 26 %; MCH 31.3 pg (25.0-35.0); MCHC 33.2 g/dL (31.0-37.0); MCV 94.2 fL (80.0-100.0); Mean Platelet Volume 7.5; Monocytes # (A) 0.6 k/uL (0-1.0); Monocytes % (A) 8 %; Neutrophils % (A) 61 %; Platelet Count 294 k/uL (150-450); RBC 4.65 m/uL (3.80-5.40); RDW 12.6 % (11.5-15.5); WBC 8.1 k/uL (3.8-10.6)
[2020-06-06 17:21] LABS: African American GFR (CKD) >90 (>60 ml/min/1.73 sqM); Anion Gap 4 mmol/L; Blood Urea Nitrogen 14 mg/dL (7-17); Carbon Dioxide 24 mmol/L (22-30); Chloride 108 mmol/L (98-107); Glucose 97 mg/dL (74-99); Non-African American GFR(CKD) 89 (>60 ml/min/1.73 sqM); Potassium 4.2 mmol/L (3.5-5.1); Sodium 136 mmol/L (137-145)
== END | disposition home or self-care (01) ==
LOC: LABPAT 16:04
PROVIDERS: ATTEND Obstetrics & Gynecology
DX: Z01.818 Encounter for other preprocedural examination (principal); N92.0 Excessive and frequent menstruation with regular cycle; N94.6 Dysmenorrhea, unspecified
CPT/HCPCS: 80051; 82565; 82947; 84520; 85025; 87086

== ENCOUNTER 2020-06-14 05:47 | Observation (INO) | payer BC ==
[2020-06-10 16:04] VITALS: BMI 23.0
--- NOTE | 2020-06-13 14:17 | HP ---
HISTORY AND PHYSICAL HISTORY OF PRESENT ILLNESS: The patient is a 44-year-old 2, para 2-0-0-2 who was sent in consultation for finding of a longstanding history of heavy bleeding with significant dysmenorrhea. She has a history of endometrial ablation beginning in approximately 2010. It initially worked well for several years, but then she began bleeding again. Over the course of the last several years, bleeding has returned to its original levels, if not worse. She has a tubal ligation in place and has been made well aware of multiple options for treatments and has requested definitive therapy with hysterectomy. She has had one section and one vaginal delivery and her examination bears out that a different approach is most logical. PAST MEDICAL HISTORY: Significant for rheumatoid arthritis as well as dysmenorrhea and menorrhagia as noted above. SURGICAL HISTORY: Significant for section as well as endometrial ablation. She additionally had arthroscopy on a knee. She has had tonsillectomy as well as tubal ligation. There were no apparent anesthetic concerns. OBSTETRICAL HISTORY: 2, para 2-0-0-2 with 1 term vaginal delivery and 1 term section. Method of contraception is tubal ligation. GYNECOLOGIC HISTORY: Unremarkable with no history of any infections to include STDs. FAMILY HISTORY: Noncontributory. SOCIAL HISTORY: The patient is and works at [employer]. She is a nonsmoker and denies any significant alcohol or any other social concerns. CURRENT MEDICATIONS: Include only Humira 40 mg as directed. ALLERGIES: AMOXICILLIN is potentially anaphylactic. CODEINE caused headache and a rash. ERYTHROMYCIN is additionally potentially anaphylactic as well as KEFLEX and VIBRAMYCIN. REVIEW OF SYSTEMS: Confined to history of present illness. PHYSICAL EXAMINATION: Vital signs are stable. The patient is afebrile. In general, this is a well- developed, well-nourished white female in no acute distress. Her heart has a regular rhythm and rate without murmur. Her lungs are clear to auscultation bilaterally in all jansen. Her abdomen is nondistended, has normoactive bowel sounds, soft, nontender, without any palpable masses, hepatosplenomegaly, or hernias. Her extremities are without any cyanosis, clubbing, or edema and are nontender to palpation bilaterally. Pelvic examination demonstrates normal external genitalia and BUS with normal vaginal mucosa and cervix. Uterus is acutely retroverted, 5-6 weeks' in size, mobile, nontender, normal in shape. The adnexa are normal and nontender without mass bilaterally. ASSESSMENT AND PLAN: Menorrhagia with severe dysmenorrhea: As the patient has failed endometrial ablation. We discussed a number of different potential alternatives for treatment. The patient has requested definitive treatment with hysterectomy. Her examination and findings dictate the robotic approach is most indicated. The risks and complications of DaVinci robotically-assisted laparoscopic hysterectomy with bilateral salpingectomy and diagnostic cystoscopy. We discussed at length including the risk for bleeding, bleeding requiring transfusion, infection, and injury to local structures to specifically include the bowel, bladder, and ureters. Special attention was paid to the bladder given her history of section. We initially went on to discuss injuries that are unique to Da Gala surgery, specifically thermal injury and vaginal cuff dehiscence. She has understood all this and has agreed to proceed. As a result, we are scheduled for the above procedure on the morning of Sunday, June 14, 2020 for the indications as noted above. MMODL / IJN: [id number] /
[~2020-06-14 05:47] MED LIST: DEXAMETHASONE SOD PHOSPHATE 4 MG/ML 1 ML VIAL IV ONE; LACTATED RINGERS 1,000 ML IV SCH; MIDAZOLAM 2 MG/2 ML VIAL IV PRN; ONDANSETRON 4 MG/2 ML VIAL IVP ONE; SCOPOLAMINE 1.5MG/72HR PATCH TRANSDERM ONE
[2020-06-14] MEDS ORDERED: SCOPOLAMINE 1.5MG/72HR PATCH TRANSDERM ONE (06:30)
[2020-06-14] MEDS ORDERED: LIDOCAINE 1% (10MG/ML) FOR IV START INTRADERMA ONE (06:30)
[2020-06-14] MEDS ORDERED: ACETAMINOPHEN TAB 500 MG TAB ONE (06:44)
[2020-06-14] MEDS ORDERED: GABAPENTIN 300 MG CAP PO ONE (06:45)
[2020-06-14] MEDS ORDERED: ROCURONIUM 10 MG/ML (10 ML VIAL) IV ONE (07:35)
[2020-06-14] MEDS ORDERED: LIDOCAINE 1% INJ 10MG/ML (20 ML MDV) ONE (07:35)
[2020-06-14] MEDS ORDERED: diphenhydrAMINE 50 MG/ML 1 ML VIAL ONE (07:35)
[2020-06-14] MEDS ORDERED: NEOSTIGMINE 1 MG/ML 10 ML VIAL ONE (07:35)
[2020-06-14] MEDS ORDERED: SUCCINYLCHOLINE CHLORIDE 100 MG/5 ML SYR IV ONE (07:35)
[2020-06-14] MEDS ORDERED: GLYCOPYRROLATE 0.2 MG/ML 2 ML VIAL ONE (07:35)
[2020-06-14] MEDS ORDERED: MIDAZOLAM 2 MG/2 ML VIAL ONE (07:35)
[2020-06-14] MEDS ORDERED: fentaNYL (PF) 50 MCG/ML 2 ML AMP ONE (07:35)
[2020-06-14] MEDS ORDERED: KETOROLAC 15 MG/ML 1 ML VIAL ONE (07:35)
[2020-06-14] MEDS ORDERED: PROPOFOL 10 MG/ML 20 ML VIAL IV ONE (07:35)
[2020-06-14] MEDS ORDERED: CLINDAMYCIN 150 MG/ML 4 ML VIAL IVPB ONE (07:45)
[2020-06-14] MEDS ORDERED: BUPIVACAINE (PF) 0.25% 30 ML VIAL SQ ONE ×2 (08:03→09:15)
[2020-06-14] MEDS ORDERED: LACTATED RINGERS 1,000 ML IV ONE (08:56)
[2020-06-14] MEDS ORDERED: METOCLOPRAMIDE 5 MG/ML 2 ML VIAL IVP PRN (09:19)
[2020-06-14] MEDS ORDERED: ONDANSETRON 4 MG/2 ML VIAL IVP PRN (09:19)
[2020-06-14] MEDS ORDERED: SIMETHICONE 80 MG CHEWABLE PO PRN (09:19)
[2020-06-14] MEDS ORDERED: IBUPROFEN 600 MG TAB PO PRN (09:19)
[2020-06-14] MEDS ORDERED: diphenhydrAMINE 50 MG/ML 1 ML VIAL IVP PRN (09:19)
[2020-06-14] MEDS ORDERED: LACTATED RINGERS 1,000 ML IV SCH (09:30)
--- NOTE | 2020-06-14 09:32 | P.OP ---
Date of Procedure: 06/14/20 Preoperative Diagnosis: #1. Menorrhagia #2. Severe dysmenorrhea Postoperative Diagnosis: Same Procedure(s) Performed: #1. Da Gala robotically assisted laparoscopic hysterectomy #2. Diagnostic cystoscopy Anesthesia: LIZY Surgeon: Michael Tineo Make Up Man #1: Cait Bardales Estimated Blood Loss (ml): 25 IV fluids (ml): 700 Urine output (ml): 100 Pathology: other (Uterus and bilateral fallopian tubes) Condition: stable Disposition: PACU Operative Findings: Preoperative pelvic examination demonstrated a 5 week midplane to some anteverted mobile normal shaped uterus with normal neck some bilaterally. Intraoperatively, these findings were confirmed. There was evidence of bilateral tubal ligation with Filshie clips present. The uterus, tubes, and ovaries were otherwise entirely normal to inspection. Following the procedure, cystoscopy demonstrated the bilateral ureteral hallux a to have jets and be peristalsing. There was no evidence of damage to the dome of the bladder either from a cystoscopic or laparoscopic perspective. Description of Procedure: The patient was prepped and draped in usual fashion after general endotracheal anesthesia was administered by the anesthesiologist. A weighted speculum was placed and the anterior lip of the cervix was grasped with a single-tooth tenaculum. Uterus was sounded but there was significant resistance approximate 5 cm secondary to her previous ablation. Dilators were used and ultimately to create a canal but was thought to likely have perforated the uterus which was confirmed intraoperatively. In either case, serial dilation was carried out to allow placement of a the rehabilitation [facility] uterine manipulator with a medium cup which was placed in standard fashion. The bladder was catheterized with clear cullen urine. Attention was then turned to the abdomen where a site was selected approximately 2 cm above the umbilicus in the midline where an 8 mm incision was made in the transverse plane allowing insertion of an 8 mm da Gala optical trocar under direct visualization without difficulty. A pneumoperitoneum was then infused and steep Trendelenburg utilized to position the patient. A site was selected approximately 10-12 cm lateral and 37 m inferiorly to the optical trocar in the right lower quadrant where an 8 mm incision was made in the transverse plane allowing insertion of an 8 mm da Gala trocar under direct visualization without difficulty. A similar trocar was placed in the left lower quadrant. The space between the left lower quadrant trocar and the optical trocar was bisected and a site selected approximately 3-47 m above the optical trocar were a 10 mm incision was made in the transverse plane allowing insertion of a 10 mm habilitation assistant port under direct was initiated without difficulty. The robot was then docked to the patient and the left arm noted with a [place] bipolar cautery forceps while the right arm was loaded with a monopolar cautery scissors. I then presented to the console. As noted previously, the V care was noted to have perforated the uterus anteriorly and attempts to slide back were relatively unsuccessful. The bladder peritoneum was noted to be just below the level of the perforation. Attention was turned to the right side where the fallopian tube was divided from the underlying ovary using bipolar cautery followed by the monopolar scissors. The utero-ovarian ligament and round ligament were divided using bipolar cautery and then monopolar scissors. The bladder peritoneum was developed across the midline just below the level of the perforation. The uterine vasculature was skeletonized on that side. Attention was then turned to the left side where similar operations were carried out without difficulty. The bladder peritoneum was developed and joint with previous dissection the bladder was then reflected distally both sharply and bluntly. The vaginal cuff could be easily seen. The uterine vasculature on each side was further skeletonized and ultimately cauterized with bipolar cautery and then divided with monopolar scissors. The vagina was then occluded with the moist laparotomy sponge and the cervicovaginal junction opened anterior ly sharply with the monopolar cautery scissors. The vaginal cuff was then followed circumferentially around the uterus to divide the specimen from the patient after which time it was brought into the vagina. The scissors were replaced with a laparoscopic suturing device and a stitch of 0 Stratafix suture was passed into the abdomen and the vaginal cuff closed in standard fashion from angle to angle without difficulty. The remaining stitch was removed from the abdomen and the suction/irrigation carried out demonstrating excellent hemostasis. I then returned to the patient and remove the Styles catheter at which time the cystoscope was placed in the bladder the bladder distended with sterile saline. The bilateral ureteral hallux were seen to be peristalsing and the dome of the bladder was is undamaged both cystoscopic and laps Perspective. All instrumentation was then removed and the robot undocked. The ports were removed and the Styles catheter replaced. The skin incisions were closed with interrupted subcuticular stitches of 4-0 Vicryl followed by half-inch Steri- Strips placed with Mastisol. The incisions were then infused with half percent Marcaine, total of 10 mL equally divided between the 4 incisions. All sponge, instrument, needle counts were correct. Estimated blood loss for the case was approximately 25 mL. There were no complications. All sponge, instrument, and needle counts were correct. The patient tolerated the procedure well and proceeded to the recovery room in stable condition.
[2020-06-14] MEDS: fentaNYL (PF) 50 MCG/ML 2 ML AMP IV PRN ×2 (09:46→09:53)
[2020-06-14] MEDS: KETOROLAC 15 MG/ML 1 ML VIAL IVP PRN ×2 (11:15→18:02)
[2020-06-14] MEDS ORDERED: ACETAMINOPHEN IV (For NPO) 1,000 MG in EMPTY BAG 1 BAG IVPB ONE (12:51)
[2020-06-14] MEDS ORDERED: HYDROcodone/APAP 5-325MG 1 EACH TAB PO PRN ×2 (13:16)
[2020-06-14] MEDS: HYDROmorphone 0.5 MG/0.5 ML SYRINGE IVP PRN (14:16)
[2020-06-14] MEDS ORDERED: SENNOSIDES-DOCUSATE SODIUM 1 EACH TAB PO SCH (21:00)
[2020-06-15] MEDS: HYDROmorphone 0.5 MG/0.5 ML SYRINGE IVP PRN ×3 (03:51→08:05)
[2020-06-15 06:15] LABS: Basophils % (A) 0 %; Eosinophils # (A) 0.1 k/uL (0-0.7); Eosinophils % (A) 1 %; HCT 39.9 % (34.0-46.0); HGB 13.1 gm/dL (11.4-16.0); Lymphocytes # (A) 2.8 k/uL (1.0-4.8); Lymphocytes % (A) 29 %; MCH 31.5 pg (25.0-35.0); MCHC 32.9 g/dL (31.0-37.0); MCV 95.6 fL (80.0-100.0); Monocytes # (A) 0.6 k/uL (0-1.0); Monocytes % (A) 6 %; Neutrophils % (A) 62 %; Platelet Count 278 k/uL (150-450); RBC 4.18 m/uL (3.80-5.40); RDW 12.6 % (11.5-15.5); WBC 9.7 k/uL (3.8-10.6)
--- NOTE | 2020-06-15 08:07 | P.PN ---
Subjective Progress Note Date: 06/15/20 The patient is reporting some nausea this morning. She has tolerated clear liquids to this point. It is unclear whether or not the nausea may be related to narcotic pain medications. I have encouraged her to and the hallways. Objective - Vital Signs Vital signs: Vital Signs Temp 98.8 F 06/15/20 00:00 Pulse 69 06/15/20 00:00 Resp 16 06/15/20 00:00 BP 106/63 06/15/20 00:00 Pulse Ox 98 06/14/20 11:37 Intake & Output 06/14/20 06/15/20 06/15/20 18:59 06:59 18:59 Intake Total 1600 Output Total 1775 850 Balance -175 -850 Intake: IV 1600 Output: Urine 1750 850 Estimated Blood Loss 25 - Exam In general, this is a well-developed, well-nourished white female in no acute distress. Her abdomen is nondistended, soft, with minimal and appropriate tenderness. There are no masses. The incisions are clean, dry, and intact. Her extremities are without any cyanosis, clubbing, or edema and are nontender to palpation bilaterally. - Labs CBC & Chem 7: 06/15/20 06:04 Assessment and Plan (1) Dysmenorrhea Current Visit: Yes Status: Acute Code(s): N94.6 - DYSMENORRHEA, UNSPECIFIED SNOMED Code(s): 929090735 (2) Menorrhagia Current Visit: Yes Status: Acute Code(s): N92.0 - EXCESSIVE AND FREQUENT MENSTRUATION WITH REGULAR CYCLE SNOMED Code(s): 661856192 Plan: Continue observation for today with the intention of advancing diet at lunchtime and probable/possible discharge home later this afternoon. Again, I have encouraged the patient in the hallways routinely. We will use only oral pain medications from this point forward.
[2020-06-15 08:59] VITALS: RESP 18
[2020-06-15] MEDS ORDERED: ACETAMINOPHEN TAB 325 MG TAB PO PRN (09:21)
[2020-06-15 17:00] VITALS: BP 101/65; PULSE 73; TEMP 98
--- NOTE | 2020-06-15 17:18 | P.DS ---
Providers Date of admission: 06/14/20 18:08 Expected date of discharge: 06/15/20 Attending physician: Michael Tineo Primary care physician: Lucila Ridley - Discharge Diagnosis(es) (1) Dysmenorrhea Current Visit: Yes Status: Acute (2) Menorrhagia Current Visit: Yes Status: Acute Hospital Course: The patient is a 44-year-old 2 para 2 scissors or 2 who initially was sent in consultation for long-standing history of menorrhagia with significant dysmenorrhea. She has a history of an endometrial ablation in 2010 that initially worked well but then began to fail as the years 1 forward. Over the last several years, her bleeding is returned to its original levels of heaviness and she has tremendous discomfort. She has a tubal ligation in place and was counseled regarding multiple options for treatment. She requested definitive therapy with hysterectomy. Given her history of previous section in the physical exam findings, she was taken the operating room where she underwent da Gala robotically assisted laparoscopic hysterectomy and uncomplicated fashion. This included bilateral salpingectomy as well as diagnostic cystoscopy which was also normal. Her postoperative course was essentially incompetent and she did have some initial issues with pain which was ultimately managed with some IV Dilaudid and ultimately controlled on post operative day #1 with both Motrin and Tylenol with no need for breakthrough narcotics. She was tolerating regular diet by the late morning of postoperative day #1 performing all activities of daily living. She is therefore deemed stable for discharge on the afternoon of postoperative day #1 was discharged home to follow-up in the office in 2 weeks for incision checks and 8 weeks routinely. Discharge instructions included calling for any significantly increased bleeding, fever, pain, incisional concerns, GI concerns, bladder concerns, or anything else that concerned her. She is additionally instructed and most importantly instructed to have nothing in the vagina for at least 8 weeks time to include intercourse. She understood all of her instructions and agrees to follow up as noted above. Discharge medications included a prescription for Webster 5/325 mg, 1-2 by mouth every 6 hours when necessary pain, #10 dispensed with no refills. She was otherwise to use [id number] analgesic pain medications as needed. Discharge hemoglobin and hematocrit were 13.1 and 39.9 respectively. Procedures: #1. Da Gala robotically assisted laparoscopic hysterectomy with bilateral salpingectomy #2. Diagnostic cystoscopy Patient Condition at Discharge: Stable Plan - Discharge Summary Discharge Rx Participant: Yes New Discharge Prescriptions: No Action Adalimumab [Humira Pen] 40 mg SQ Q14D Cholecalciferol [Vitamin D3 (25 Mcg = 1000 Iu)] 1,000 unit PO DAILY Cyanocobalamin (Vitamin B-12) [Vitamin B-12] 1,000 mcg PO DAILY Discharge Medication List Adalimumab [Humira Pen] 40 mg SQ Q14D 03/08/20 [History] Cholecalciferol [Vitamin D3 (25 Mcg = 1000 Iu)] 1,000 unit PO DAILY 06/10/20 [History] Cyanocobalamin (Vitamin B-12) [Vitamin B-12] 1,000 mcg PO DAILY 06/10/20 [History] Follow up Appointment(s)/Referral(s): Michael Tineo MD [STAFF PHYSICIAN] - 2 Weeks Discharge Disposition: HOME SELF-CARE
== END 2020-06-15 17:35 | disposition home or self-care (01) ==
LOC: OR 05:47 → 4FBP 09:16 → OR 18:12
PROVIDERS: ADMIT Obstetrics & Gynecology; ATTEND Obstetrics & Gynecology
DX: N94.6 Dysmenorrhea, unspecified (principal); N92.0 Excessive and frequent menstruation with regular cycle; N80.0 Endometriosis of uterus; R11.0 Nausea; M06.9 Rheumatoid arthritis, unspecified; Z79.899 Other long term (current) drug therapy; Z88.1 Allergy status to other antibiotic agents; Z88.5 Allergy status to narcotic agent; Z88.0 Allergy status to penicillin; Z98.51 Tubal ligation status; Z98.891 History of uterine scar from previous surgery
CPT/HCPCS: 58552; S2900; 36415; 81025; 85025; 86850; 86900; 86901; 88307

== ENCOUNTER → 2021-06-27 | Outpatient (CLI) | payer BC ==
[2021-06-27 08:17] VITALS: BP 110/76; PULSE 69; RESP 16; TEMP 98.5
--- NOTE | 2021-06-27 08:54 | P.HPOB ---
History of Present Illness H&P Date: 06/27/21 Chief Complaint: The patient is here for her routine gynecologic exam and ma mmogram. This is a 45-year-old with an LMP of 2019. The patient is status post TLH with bilateral salpingectomy. The ovaries were not removed. The patient is without gynecologic complaints. She is very happy that she had her hysterectomy because of the menstrual problems that she was having. The hysterectomy went smoothly and she had a good recovery. She denies any postmenopausal symptoms, such as hot flashes, at this time. Review of Systems The patient has gained 5 pounds over the last year. She denies respiratory or cardiac problems. GI: Occasional heartburn. 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 She had one section followed by vaginal delivery. History of Any Multi-Drug Resistant Organisms: None Reported Past Surgical History: Section, Hysterectomy, Tonsillectomy, Tubal Ligation, Uterine Ablation Additional Past Surgical History / Comment(s): Endometrial ablation 2009. 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 - Past Family History Father Family Medical History: Hypertension Mother Family Medical History: Hypertension Additional Family Medical History / Comment(s): A grandmother had lung cancer and the grandfather had prostate cancer. Medications and Allergies Home Medications Medication Instructions Recorded Confirmed Type Adalimumab [Humira Pen] 40 mg SQ Q21D 03/08/20 06/27/21 History Cholecalciferol [Vitamin D3 (25 1,000 unit PO DAILY 06/10/20 06/27/21 History Mcg = 1000 Iu)] Cyanocobalamin (Vitamin B-12) 1,000 mcg PO DAILY 06/10/20 06/27/21 History [Vitamin B-12] Allergies Allergy/AdvReac Type Severity Reaction Status Date / Time amoxicillin Allergy Severe Rash/Hives Verified 06/14/20 11:01 erythromycin base Allergy Rash/Hives Verified 06/14/20 11:01 cephalexin [From Keflex] AdvReac Severe Dyspnea Verified 06/14/20 11:01 codeine AdvReac Severe Nausea & Verified 06/14/20 11:01 Vomiting,rash Exam Vital Signs Temp Pulse Resp BP 06/27/21 08:12 98.5 F 69 16 110/76 Intake and Output 06/26/21 06/27/21 06/27/21 22:59 06:59 14:59 Other: Weight 63.503 kg Height 5 feet 4 inches, weight 140 pounds, BMI 24.0. This is a well-developed well-nourished white female who is alert and oriented times 3 in no acute distress. HEENT: Within normal limits. NECK: Supple without mass or thyromegaly. CHEST AND LUNGS: Clear to auscultation. HEART: Regular rate and rhythm. BREASTS: Are without mass or discharge. AXILLARY EXAM: Negative for adenopathy. BACK: Negative for CVA tenderness. ABDOMEN: Soft, nontender, without palpable masses. PELVIC EXAM: External genitalia appears normal. Vagina appears normal. There is no evidence of prolapse. Bimanual examination is negative for mass or tenderness . RECTAL EXAM: negative for mass or tenderness and is negative for occult blood. EXTREMITIES: Nontender. IMPRESSION: 1. 45-year-old female who is status post TLH with bilateral salpingectomy for benign reasons, with normal gynecologic exam. PLAN: 1. Pap smears have been discontinued. 2. Self breast awareness was discussed with the patient. We have also discussed symptoms associated with inflammatory breast cancer. 3. Screening mammogram will be done today. 4. We have discussed menopausal symptoms. She will call she's having significant issues with menopausal symptoms 5. Osteoporosis prevention was discussed. I have stressed the importance of adequate calcium, vitamin D and regular exercise. Recommended amounts of calcium and vitamin D were also discussed. 6. She has not received a Covid vaccination. She states she had Covid previously. She understands that some would still recommend vaccination after having had Covid. She understands this, but at this time will rely on natural immunity. 7. She was advised to return in one year for her annual well woman exam.
--- NOTE | 2021-06-28 11:02 | MM ---
Reason for exam: screening (asymptomatic). Last mammogram was performed 1 year and 4 months ago. Physical Findings: A clinical breast exam by your physician is recommended on an annual basis and results should be correlated with mammographic findings. MG Screening Mammo w CAD Bilateral CC and MLO view(s) were taken. Prior study comparison: March 08, 2020, bilateral MG screening mammo w CAD. January 23, 2019, bilateral US breast workup [facility]. January 20, 2019, bilateral MG 3d screening mammo w/cad. December 24, 2017, bilateral MG screening mammo w CAD. October 01, 2016, bilateral MG screening mammo w CAD. The breast tissue is heterogeneously dense. This may lower the sensitivity of mammography. There is chronic nodularity in the left breast, stable or decreased in size. There is no new dominant lesion. ASSESSMENT: Negative, BI-RAD 1 RECOMMENDATION: Routine screening mammogram of both breasts in 1 year. Some consider bilateral ultrasound surveillance in patient with extremely dense fibroglandular tissue.
== END ==
LOC: WWCWWP 07:54
PROVIDERS: ATTEND Obstetrics & Gynecology
DX: Z12.39 Encounter for other screening for malignant neoplasm of breast (principal); Z90.722 Acquired absence of ovaries, bilateral; M06.9 Rheumatoid arthritis, unspecified; Z88.1 Allergy status to other antibiotic agents; Z88.5 Allergy status to narcotic agent
CPT/HCPCS: 77067

== ENCOUNTER → 2022-07-17 | Outpatient (CLI) | payer OTHER ==
[2022-07-17 10:02] VITALS: BP 116/79; PULSE 63; RESP 16; TEMP 98.2
--- NOTE | 2022-07-17 10:36 | P.HPOB ---
History of Present Illness H&P Date: 07/17/22 Chief Complaint: The patient is here for her routine gynecologic exam and ma mmogram. This is a 46-year-old with an LMP of 2019. She is status post TLH with bilateral salpingectomies for benign reasons. She recently has started having mild hot flashes which are not very bothersome. She is otherwise without gynecologic complaints. Review of Systems She has gained about 6 pounds over the past year. She denies respiratory or cardiac problems. GI: She has occasional heartburn. Dairy products seem to cause some stomach issues and gas. She has done better with lactose-free milk. 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 She had one section followed by vaginal delivery. History of Any Multi-Drug Resistant Organisms: None Reported Past Surgical History: Section, Hysterectomy, Tonsillectomy, Tubal Ligation, Uterine Ablation Additional Past Surgical History / Comment(s): Endometrial ablation 2009. TLH with bilateral salpingectomy (ovaries not removed)2019. Past Anesthesia/Blood Transfusion Reactions: Motion Sickness, Postoperative Nausea & Vomiting (PONV) Past Psychological History: No Psychological Hx Reported Smoking Status: Never smoker Past Alcohol Use History: Occasional (5 or 6 per week) Past Drug Use History: None Reported Additional History: She has been since 1997. 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 - Past Family History Father Family Medical History: Hypertension Mother Family Medical History: Hypertension Additional Family Medical History / Comment(s): A grandmother had lung cancer and the grandfather had prostate cancer. Medications and Allergies Home Medications Medication Instructions Recorded Confirmed Type Adalimumab [Humira Pen] 40 mg SQ Q21D 03/08/20 07/17/22 History Cholecalciferol [Vitamin D3 (25 1,000 unit PO DAILY 06/10/20 07/17/22 History Mcg = 1000 Iu)] Cyanocobalamin (Vitamin B-12) 1,000 mcg PO DAILY 06/10/20 07/17/22 History [Vitamin B-12] Allergies Allergy/AdvReac Type Severity Reaction Status Date / Time amoxicillin Allergy Severe Rash/Hives Verified 07/17/22 09:58 erythromycin base Allergy Rash/Hives Verified 07/17/22 09:58 cephalexin [From Keflex] AdvReac Severe Dyspnea Verified 07/17/22 09:58 codeine AdvReac Severe Nausea & Verified 07/17/22 09:58 Vomiting,rash Exam Vital Signs Temp Pulse Resp BP Pulse Ox 07/17/22 09:59 98.2 F 63 16 116/79 96 Intake and Output 07/16/22 07/17/22 12 22:59 06:59 14:59 Other: Weight 66.224 kg Height 5 feet 4 inches, weight 146 pounds, BMI 25.1. This is a well-developed well-nourished white female who is alert and oriented times 3 in no acute distress. HEENT: Within normal limits. NECK: Supple without mass or thyromegaly. CHEST AND LUNGS: Clear to auscultation. HEART: Regular rate and rhythm. BREASTS: Are without mass or discharge. There is slight central nipple inversion bilaterally which the patient states has been this way for many years. AXILLARY EXAM: Negative for adenopathy. BACK: Negative for CVA tenderness. ABDOMEN: Soft, nontender, without palpable masses. PELVIC EXAM: External genitalia appears normal. Vagina appears normal. There is no evidence of prolapse. Bimanual examination is negative for mass or tenderness. RECTAL EXAM: Rectovaginal exam is negative for mass or tenderness and is negative for occult blood. EXTREMITIES: Nontender. IMPRESSION: 1. 46-year-old perimenopausal female status post TLH with bilateral salpingectomies for benign reasons, with normal gynecologic exam. PLAN: 1. Pap smears have been discontinued. 2. Self breast awareness was discussed with the patient. We have also discussed symptoms associated with inflammatory breast cancer. 3. Screening mammogram will be done today. 4. Osteoporosis prevention was discussed. I have stressed the importance of adequate calcium, vitamin D and regular exercise. Recommended amounts of calcium and vitamin D were also discussed. 5. She has not received a Covid vaccination, but has had Covid in the past. She understands a Covid vaccination could increase her protection against Covid and she will consider this. 6. Colorectal cancer screening was discussed with the patient. I have advised her to discuss her options with her PCP. 7. She was advised to return in one year for her annual well woman exam.
--- NOTE | 2022-07-18 08:49 | MM ---
Reason for Exam: Screening (asymptomatic). Last mammogram was performed 1 year(s) and 1 month(s) ago. Patient History: Menarche at age 11. First Full-Term at age 23. Hysterectomy at age 44. Perimenopausal. Risk Values: Deanna 5 year model risk: 1.0%. NCI Lifetime model risk: 10.2%. Prior Study Comparison: 01/20/2019 Bilateral Screening Mammogram, [facility]. 03/08/2020 Bilateral Screening Mammogram, [facility]. 06/27/2021 Bilateral Screening Mammogram, [facility]. Tissue Density: The breast tissue is heterogeneously dense. This may lower the sensitivity of mammography. Findings: Analyzed By CAD. There are persistent circumscribed round and oval masses on background dense tissue There is no suspicious new group of microcalcifications or enlarging suspicious mass in either breast. Overall Assessment: Benign, BI-RAD 2 Management: Screening Mammogram of both breasts in 1 year. Some advise bilateral breast ultrasound surveillance in patients with background dense tissue. A clinical breast exam by your physician is recommended on an annual basis and results should be correlated with mammographic findings. Electronically signed and approved by: Chuy Coker M.D.
== END ==
LOC: WWCWWP 09:47
PROVIDERS: ATTEND Obstetrics & Gynecology
DX: Z01.419 Encounter for gynecological examination (general) (routine) without abnormal findings (principal); Z12.31 Encounter for screening mammogram for malignant neoplasm of breast; Z90.711 Acquired absence of uterus with remaining cervical stump; Z88.0 Allergy status to penicillin; Z88.1 Allergy status to other antibiotic agents; Z88.5 Allergy status to narcotic agent
CPT/HCPCS: 77067

== ENCOUNTER → 2023-10-02 | Outpatient (CLI) | payer OTHER ==
[2023-10-02 08:20] VITALS: BP 122/75; PULSE 64; RESP 16; TEMP 97.9
--- NOTE | 2023-10-02 08:38 | P.HPOB ---
History of Present Illness H&P Date: 10/02/23 Chief Complaint: The patient is here for her routine gynecologic exam and ma mmogram. This is a 47-year-old with an LMP of 2019. She is status post TLH with bilateral salpingectomies for benign reasons. She has noticed increased anxiety as well as mild hot flashes which are not very bothersome. She has been using an [id number] prior fact called Amberen which she states has helped with the anxiety. She is otherwise without complaints. Review of Systems The patient's weight has been stable over the last year. She denies respiratory, cardiac, or G.I. problems. 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 She had one section followed by vaginal delivery. History of Any Multi-Drug Resistant Organisms: None Reported Past Surgical History: Section, Hysterectomy, Tonsillectomy, Tubal Ligation, Uterine Ablation Additional Past Surgical History / Comment(s): Endometrial ablation 2009. TLH with bilateral salpingectomy (ovaries not removed)2019. 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 - Past Family History Father Family Medical History: Hypertension Mother Family Medical History: Hypertension Additional Family Medical History / Comment(s): A grandmother had lung cancer and the grandfather had prostate cancer. Medications and Allergies Home Medications Medication Instructions Recorded Confirmed Type Cholecalciferol [Vitamin D3 (25 1,000 unit PO DAILY 06/10/20 10/02/23 History Mcg = 1000 Iu)] Cyanocobalamin (Vitamin B-12) 1,000 mcg PO DAILY 06/10/20 10/02/23 History [Vitamin B-12] Allergies Allergy/AdvReac Type Severity Reaction Status Date / Time amoxicillin Allergy Severe Rash/Hives Verified 10/02/23 07:58 erythromycin base Allergy Rash/Hives Verified 10/02/23 07:58 cephalexin [From Keflex] AdvReac Severe Dyspnea Verified 10/02/23 07:58 codeine AdvReac Severe Nausea & Verified 10/02/23 07:58 Vomiting,rash Exam Vital Signs Temp Pulse Resp BP Pulse Ox 10/02/23 08:01 97.9 F 64 16 122/75 97 Intake and Output 10/01/23 10/02/23 10/02/23 22:59 06:59 14:59 Other: Weight 67.132 kg Height 5 feet 4 inches, weight 148 pounds, BMI 25.4. This is a well-developed well-nourished white female who is alert and oriented times 3 in no acute distress. HEENT: Within normal limits. NECK: Supple without mass or thyromegaly. CHEST AND LUNGS: Clear to auscultation. HEART: Regular rate and rhythm. BREASTS: Are without mass or discharge. There is bilateral central nipple inversion which the patient states she has had for many years. AXILLARY EXAM: Negative for adenopathy. BACK: Negative for CVA tenderness. ABDOMEN: Soft, nontender, without palpable masses. PELVIC EXAM: External genitalia appears normal. Vagina appears normal with minimal atrophy. There is no evidence of prolapse. Bimanual examination is negative for mass or tenderness. RECTAL EXAM: Rectovaginal exam is negative for mass or tenderness and is negative for occult blood. EXTREMITIES: Nontender. IMPRESSION: 1. 47-year-old perimenopausal female status post TLH with bilateral salpingectomies, with normal gynecologic exam. 2. Probable mild perimenopausal symptoms including anxiety and mild vasomotor symptoms. The patient states these are improved with [id number] Amberen. PLAN: 1. Pap smears have been discontinued. 2. Self breast awareness was discussed with the patient. We have also discussed symptoms associated with inflammatory breast cancer. 3. Screening mammogram will be done today. 4. Osteoporosis prevention was discussed. I have stressed the importance of adequate calcium, vitamin D and regular exercise. Recommended amounts of calcium and vitamin D were also discussed. 5. Colorectal cancer screening was discussed as well as different options. She will speak with her PCP regarding the options. 6. She was advised to return in one year for her annual well woman exam.
--- NOTE | 2023-10-03 20:54 | MM ---
Reason for Exam: Screening (asymptomatic). Last mammogram was performed 1 year(s) and 2 month(s) ago. Patient History: Menarche at age 11. First Full-Term at age 23. Hysterectomy at age 44. Perimenopausal. Risk Values: Deanna 5 year model risk: 1.0%. NCI Lifetime model risk: 10.0%. Prior Study Comparison: 03/08/2020 Bilateral Screening Mammogram, [facility]. 06/27/2021 Bilateral Screening Mammogram, [facility]. 07/17/2022 Bilateral MG screening mammo w CAD, [facility]. Tissue Density: The breast tissue is heterogeneously dense. This may lower the sensitivity of mammography. Findings: Analyzed By CAD. Bilateral fluctuating masses, many of which are increasing in size. These likely represent underlying cysts but further ultrasound evaluation is recommended. Otherwise, no suspicious microcalcification or other discrete abnormality. Overall Assessment: Incomplete: need additional imaging evaluation, BI-RAD 0 Management: Diagnostic Breast Ultrasound of both breasts. . [facility] will attempt to contact patient to return for supplemental views and ultrasound if indicated. Electronically signed and approved by: Kimi Blandon M.D. Radiologist
== END ==
LOC: WWCWWP 07:51
PROVIDERS: ATTEND Obstetrics & Gynecology
DX: Z12.31 Encounter for screening mammogram for malignant neoplasm of breast (principal); F41.9 Anxiety disorder, unspecified; M06.9 Rheumatoid arthritis, unspecified; Z78.0 Asymptomatic menopausal state; Z90.710 Acquired absence of both cervix and uterus; Z88.0 Allergy status to penicillin; Z88.1 Allergy status to other antibiotic agents; Z88.5 Allergy status to narcotic agent
CPT/HCPCS: 77063; 77067

== ENCOUNTER → 2023-10-08 | Outpatient (CLI) | payer OTHER ==
--- NOTE | 2023-10-08 14:35 | USB ---
Reason for Exam: Additional evaluation requested from abnormal screening. Patient History: Menarche at age 11. First Full-Term at age 23. Hysterectomy at age 44. Perimenopausal. Risk Values: Deanna 5 year model risk: 1.0%. NCI Lifetime model risk: 10.0%. Technique: Method: Whole Breast Handheld. Prior Study Comparison: 06/27/2021 Bilateral Screening Mammogram, [facility]. 07/17/2022 Bilateral MG screening mammo w CAD, [facility]. 10/02/2023 Bilateral MG 3D screening mammo w/cad, [facility]. Findings: The whole breast of both breasts, the axilla of both breasts and the retroareolar of both breasts were scanned. A complete US of all four quadrants of both breasts, axilla, and retro-areolar region were reviewed. Right: Multiple cysts and cyst clusters are present. The largest cyst contains some debris and is located at the 12:00 position measuring 3.3 x 2.9 x 1.4 cm. Cysts are present throughout the breast and are as small as 3 mm. No suspicious solid lesion or axillary adenopathy. Left: Multiple cysts and cyst clusters are present, largest cyst located at the 11:00 position, 6 cm from the nipple measuring 3.1 x 2.5 x 1.3 cm. Additional cysts are present throughout the breast with the next largest measuring up to 2.1 cm at 1:00 and as small as 6 mm. No suspicious solid lesion or axillary. Given the numerous fluctuating masses on mammogram, diagnostic follow-up at the time of the patient's annual is recommended. Overall Assessment: Probably benign, BI-RAD 3 Management: Diagnostic Mammogram of both breasts in 1 year. A clinical breast exam by your physician is recommended on an annual basis and results should be correlated with mammographic findings. This exam should not preclude additional follow-up of suspicious palpable abnormalities. Results were given to the patient verbally at the time of exam. Electronically signed and approved by: Kimi Blandon M.D. Radiologist
== END | disposition home or self-care (01) ==
LOC: RADUSWWP 13:47
PROVIDERS: ATTEND Obstetrics & Gynecology
DX: R92.8 Other abnormal and inconclusive findings on diagnostic imaging of breast (principal)

== ENCOUNTER → 2025-02-10 | Outpatient (CLI) | payer OTHER ==
[2025-02-10 09:32] VITALS: BP 127/79; PULSE 60; RESP 16; TEMP 98.6
--- NOTE | 2025-02-10 10:02 | P.HPOB ---
History of Present Illness H&P Date: 02/10/25 Chief Complaint: The patient is here for her routine gynecologic exam and ma mmogram. This is a 49-year-old G2, P2 with an LMP of 2019. She is status post TLH with bilateral salpingectomies for benign reasons. She states she has been having occasional left lower quadrant discomfort during the past 6 months. She states the discomfort is not really a pain but it feels like "something is there". It can last up to a couple of days. She thinks it occurs a little more often than monthly. She discussed this with her PCP who ordered a CT scan of the abdomen and pelvis which was done on 01/07/2025. The CT scan was unremarkable. There were no pelvic masses or free fluid. She does have occasional hot flashes and sometimes wakes up in the middle of the night for no good reasons. She is otherwise without gynecologic complaints Review of Systems The patient has lost 6 pounds over the last year. She denies respiratory, cardiac, or G.I. problems. 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 She had one section followed by vaginal delivery. History of Any Multi-Drug Resistant Organisms: None Reported Past Surgical History: Section, Hysterectomy, Tonsillectomy, Tubal Ligation, Uterine Ablation Additional Past Surgical History / Comment(s): Endometrial ablation 2009. TLH with bilateral salpingectomy (ovaries not removed)2019. 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 Her oldest daughter is engaged to be in 2024. - Past Family History Father Family Medical History: Hypertension Mother Family Medical History: Hypertension Additional Family Medical History / Comment(s): A grandmother had lung cancer and the grandfather had prostate cancer. Medications and Allergies Home Medications Medication Instructions Recorded Confirmed Type Cholecalciferol [Vitamin D3 (25 1,000 unit PO DAILY 06/10/20 10/02/23 History Mcg = 1000 Iu)] Multivit-Min/Iron Fum/Folic AC 1 each PO DAILY 02/10/25 02/10/25 History [One-A-Day Women's Complete Tab] Allergies Allergy/AdvReac Type Severity Reaction Status Date / Time amoxicillin Allergy Severe Rash/Hives Verified 02/10/25 09:23 erythromycin base Allergy Rash/Hives Verified 02/10/25 09:23 cephalexin [From Keflex] AdvReac Severe Dyspnea Verified 02/10/25 09:23 codeine AdvReac Severe Nausea & Verified 02/10/25 09:23 Vomiting,rash Exam Vital Signs Temp Pulse Resp BP Pulse Ox 02/10/25 09:27 98.6 F 60 16 127/79 97 Intake and Output 02/09/25 02/10/25 02/10/25 22:59 06:59 14:59 Other: Weight 64.41 kg Height 5 feet 4 inches, weight 142 pounds, BMI 24.4. This is a well-developed well-nourished white female who is alert and oriented times 3 in no acute distress. HEENT: Within normal limits. NECK: Supple without mass or thyromegaly. CHEST AND LUNGS: Clear to auscultation. HEART: Regular rate and rhythm. BREASTS: Are without mass or discharge. AXILLARY EXAM: Negative for adenopathy. BACK: Negative for CVA tenderness. ABDOMEN: Soft, nontender, without palpable masses. PELVIC EXAM: External genitalia appears normal. Vagina appears normal. There is no evidence of prolapse. Bimanual examination is negative for mass or tenderness. RECTAL EXAM: Rectovaginal exam is negative for mass or tenderness and is negative for occult blood. EXTREMITIES: Nontender. IMPRESSION: 1. 49-year-old perimenopausal female status post TLH with bilateral salpingectomies, with normal gynecologic exam. 2. 6-month history of intermittent left lower quadrant discomfort with no significant physical findings on exam today and negative CT scan of the abdomen and pelvis about 1 month ago. This sounds like she may be having some perimenopausal ovarian changes which could include ovulatory pains or intermittent perimenopausal cysts. PLAN: 1. Pap smears have been discontinued. 2. Self breast awareness was discussed with the patient. We have also discussed symptoms associated with inflammatory breast cancer. 3. Bilateral diagnostic mammogram will be done today and this is following a previous abnormal mammogram last year after a probably benign follow-up. 4. The patient will keep a symptom calendar and call if problems. With the negative CT scan, I have reassured her that I doubt that it is anything serious and probably will decrease after she becomes fully menopausal. 5. Osteoporosis prevention was discussed. I have stressed the importance of adequate calcium, vitamin D and regular exercise. Recommended amounts of calc ium and vitamin D were also discussed. 6. She is scheduled for her first colonoscopy on 02/24/2025. 7. She was advised to return in one year for her annual well woman exam and as needed.
--- NOTE | 2025-02-10 10:33 | MM ---
Reason for Exam: Follow-up at short interval from prior study. Last mammogram was performed 1 year(s) and 5 month(s) ago. Patient History: Menarche at age 11. First Full-Term at age 23. Hysterectomy at age 44. Perimenopausal. Risk Values: Deanna 5 year model risk: 1.1%. NCI Lifetime model risk: 9.7%. Tissue Density: The breasts are heterogeneously dense, which may obscure small masses. Findings: Analyzed By CAD. Bilateral partially circumscribed and partially obscured masses are redemonstrated in both breasts, better seen on 3D images. Largest right upper outer quadrant currently 3.0 cm versus 1.7 cm, previously. These nodules are more numerous on the left and show interval slight fluctuation. No suspicious microcalcification or other discrete abnormality is seen. Overall Assessment: Incomplete: need additional imaging evaluation, BI-RAD 0 Management: Diagnostic Breast Ultrasound of both breasts. As follow-up for the previous complex cysts/cyst clusters seen on 10/08/2023. [facility], , 02/10/2025 10:29 AM. Electronically signed and approved by: Kimi Blandon M.D. Radiologist
--- NOTE | 2025-02-10 12:11 | USB ---
Reason for Exam: Additional evaluation requested from abnormal screening. Patient History: Menarche at age 11. First Full-Term at age 23. Hysterectomy at age 44. Perimenopausal. Risk Values: Deanna 5 year model risk: 1.1%. NCI Lifetime model risk: 9.7%. Technique: Method: Targeted. Prior Study Comparison: 06/27/2021 Bilateral Screening Mammogram, [facility]. 07/17/2022 Bilateral MG screening mammo w CAD, [facility]. 10/02/2023 Bilateral MG 3D screening mammo w/cad, [facility]. Findings: The upper outer quadrant of the right breast, the upper section of the breast of the left breast, the lower inner quadrant of the right breast, the axilla of both breasts and the retroareolar of both breasts were scanned. Targeted ultrasound of both breasts. Right: At the 5:00 position, 3 cm from the nipple, there is a stable 9 x 6 x 4 mm cyst cluster, unchanged from 10/08/2023. At the 10:00 position, 5 cm from nipple, there is a benign 1.3 cm cyst. Mild subareolar duct ectasia is noted. No other solid or cystic lesion or axillary adenopathy. Left: At the 1:00 position, 8 cm from the nipple, there is a stable 1.1 x 0.8 x 0.4 cm cyst cluster. At the 2:00 position, 4 cm from the nipple, there has been interval enlargement of the previous complex cyst now with a simple appearance measuring up to 2.5 cm. No suspicious internal complexity is seen. At the 10:00 position, 3 cm from the nipple, there is a benign 1.5 cm cyst posteriorly. At the 10:00 position, 3 cm from the nipple, there is a stable 9 x 7 x 4 mm cyst cluster. At the 11:00 position, 3 cm the nipple, there is a stable 1.8 x 1.2 x 0.6 cm focus of fibrocystic change. Minimal subareolar duct ectasia. No other solid or cystic lesion or axillary adenopathy. Patient's annual follow-up can be performed in diagnostic clinic due to the fluctuating nodularity. Overall Assessment: Probably benign, BI-RAD 3 Management: Diagnostic Mammogram of both breasts in 1 year. A clinical breast exam by your physician is recommended on an annual basis and results should be correlated with mammographic findings. This exam should not preclude additional follow-up of suspicious palpable abnormalities. Results were given to the patient verbally at the time of exam. [facility], , 02/10/2025 12:07 PM. Electronically signed and approved by: Kimi Blandon M.D. Radiologist
== END ==
LOC: WWCWWP 09:11
PROVIDERS: ATTEND Obstetrics & Gynecology
DX: Z01.419 Encounter for gynecological examination (general) (routine) without abnormal findings (principal); Z12.13 Encounter for screening for malignant neoplasm of small intestine; M06.9 Rheumatoid arthritis, unspecified; Z78.0 Asymptomatic menopausal state; Z88.0 Allergy status to penicillin; Z88.1 Allergy status to other antibiotic agents; Z88.5 Allergy status to narcotic agent; Z88.8 Allergy status to other drugs, medicaments and biological substances
CPT/HCPCS: 77062; 77066

== ENCOUNTER 2025-02-24 11:08 | Day surgery (SDC) | payer OTHER ==
[2025-02-23 11:29] VITALS: BMI 24.0
[2025-02-24] MEDS: IV FLUID CONTINUATION 1,000 ML IV ONE (11:51)
[2025-02-24] MEDS: LACTATED RINGERS 1,000 ML IV SCH (11:51)
[2025-02-24 11:54] VITALS: TEMP 97.3
[2025-02-24] MEDS ORDERED: PROPOFOL 10 MG/ML 20 ML VIAL IV ONE (12:35)
--- NOTE | 2025-02-24 12:51 | P.PCN ---
Date of Procedure: 02/24/25 Procedure(s) Performed: BRIEF HISTORY: Patient is a 49-year-old pleasant white female scheduled for an elective colonoscopy as a part of screening for colon cancer. PROCEDURE PERFORMED: Colonoscopy. PREOPERATIVE DIAGNOSIS: Screening for colon cancer. IV sedation per Anesthesia. PROCEDURE: After informed consent was obtained, the patient, was brought into the endoscopy unit. IV sedation was administered by Anesthesia under continuous monitoring. Digital rectal examination was normal. Initially the Olympus CF-160 flexible video colonoscope was then inserted in the rectum, gradually advanced into the cecum without any difficulty. Careful examination was performed as the scope was gradually being withdrawn. Ileocecal valve and the appendiceal orifice were visualized and appeared normal. Prep was excellent. Mucosa of the cecum, ascending colon, transverse colon, descending colon, sigmoid colon, and rectum appeared normal. Retroflexion was performed in the rectum and no lesions were seen. The patient tolerated the procedure well. IMPRESSION: Normal-appearing colon from rectum to cecum with no evidence of colorectal neoplasia. RECOMMENDATIONS: Findings of this examination were discussed with the patient as well as her family.. She was advised to have repeat screening colonoscopy in 10 years.
[2025-02-24 13:25] VITALS: RESP 16
[2025-02-24 13:26] VITALS: BP 113/73; PULSE 61
== END 2025-02-24 13:56 | disposition home or self-care (01) ==
LOC: ORWHC2ENDO 11:08
PROVIDERS: ATTEND Internal Medicine Gastroenterology
DX: Z12.11 Encounter for screening for malignant neoplasm of colon (principal)
CPT/HCPCS: J2704; G0121